=== PATIENT | female | born 1990 | race Caucasian/White ===

== ENCOUNTER → 2018-02-25 | Outpatient (CLI) | payer OTHER ==
[2018-02-25 17:38] LABS: RUBELLA IgG QUALITATIVE IMMUNE (IMMUNE)
[2018-02-25 17:39] LABS: HBsAg Prenatal NEGATIVE (NEGATIVE)
[2018-02-25 18:07] LABS: HIV 1&2 SCREEN CENTAUR NEGATIVE (NEGATIVE)
[2018-02-25 18:07] LABS: HEPATITIS C VIRUS ABY INDEX < 0.0 INDEX (<0.8)
[2018-02-25 18:22] LABS: BASO % 0.1 % (0.0-1.0); EOS # 0.2 10^3/uL (0.0-0.50); EOS % 1.4 % (0.0-3.0); HEMATOCRIT 40.4 % (36.0-47.0); HEMOGLOBIN 13.5 g/dl (12.0-15.5); IMMATURE GRANULOCYTE % 0.4 % (0-3.0); LYMPH # 2.5 10^3/uL (1.5-6.5); LYMPH % 18.2 % (24.0-44.0); MEAN CORPUSCULAR HEMOGLOBIN 28.8 pg (27.0-33.0); MEAN CORPUSCULAR HGB CONC 33.4 g/dl (32.0-36.5); MEAN CORPUSCULAR VOLUME 86.1 fl (80.0-96.0); MONO # 0.7 10^3/uL (0.0-0.8); MONO % 5.3 % (0.0-5.0); NEUTROPHILS # 10.3 10^3/uL (1.8-7.7); NEUTROPHILS % 74.6 % (36.0-66.0); PLATELET COUNT, AUTOMATED 304 10^3/uL (150-450); RED BLOOD COUNT 4.69 10^6/uL (4.00-5.40); RED CELL DISTRIBUTION WIDTH 12.2 % (11.5-14.5); WHITE BLOOD COUNT 13.9 10^3/uL (4.0-10.0)
[2018-02-25 20:43] LABS: CHLAMYDIA DNA AMPLIFICATION NEGATIVE (NEGATIVE); GC DNA AMPLIFICATION NEGATIVE (NEGATIVE)
== END ==
LOC: M SMT 14:14
DX: Z36.89 Encounter for other specified antenatal screening (principal)
CPT/HCPCS: 86762

== ENCOUNTER → 2018-04-22 | Outpatient (CLI) | payer OTHER | LOC: M RAD 14:14 | DX: Z34.82 Encounter for supervision of other normal pregnancy, second trimester (principal); Z36.89 Encounter for other specified antenatal screening; Z3A.19 19 weeks gestation of pregnancy | CPT/HCPCS: 76811 ==

== ENCOUNTER → 2018-05-23 | Outpatient (CLI) | payer OTHER | LOC: M RAD 16:34 | DX: Z34.82 Encounter for supervision of other normal pregnancy, second trimester (principal); Z3A.21 21 weeks gestation of pregnancy | CPT/HCPCS: 76816 ==

== ENCOUNTER → 2018-07-04 | Outpatient (CLI) | payer OTHER ==
[2018-07-05 08:53] LABS: AB SCREEN (INDIRECT COOMBS)VIS 1 1
== END ==
LOC: M SMT 15:03
DX: Z36.89 Encounter for other specified antenatal screening (principal); Z3A.00 Weeks of gestation of pregnancy not specified
CPT/HCPCS: 36415

== ENCOUNTER → 2018-08-23 | Outpatient (REF) | payer OTHER | LOC: M LAB REF 17:11 | DX: Z36.89 Encounter for other specified antenatal screening (principal) | CPT/HCPCS: 87081 ==

== ENCOUNTER 2018-09-27 15:26 | Inpatient (IN) | payer OTHER ==
[2018-09-27] VITALS (9 sets, daily range): BP systolic 117–144; BP diastolic 59–89
[~2018-09-27] VITALS: Ht 172.7 cm; Wt 110.9 kg
[2018-09-27] MEDS ORDERED: PRENTAB9 PO (15:57)
[2018-09-27] MEDS ORDERED: SUDAFED PO (15:57)
[2018-09-27] MEDS ORDERED: LACTATED RINGER'S 1000 ML IV STA (16:20)
[2018-09-27] MEDS ORDERED: SODIUM CHLORIDE NASAL 0.65% SPRAY BTL (OCEAN) PRN (16:30)
--- NOTE | 2018-09-27 16:42 | HPEPDOC ---
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 Past Medical History Surgical History: Denies/None Family History Significant Family History: Asthma, Heart disease, Hypertension Social History Marital Status: Family situation: Spouse/partner home Psychosocial History: No pertinent psych hx * Smoker: non-smoker Alcohol: Denies Drugs: denies Imunizations Tdap status: declined Allergies Coded Allergies: No Known Allergies (Unverified , 09/27/18) Medications Scheduled Multivitamins/ ( 27-0.8 mg) 1 Tab Tab, 1 TAB PO DAILY Scheduled PRN [Sudafed] , PO PRN PRN for CONGESTION Physical Examination Physical Examination GENERAL: Alert and oriented times three. BREAST: . ABDOMEN: Gravid and non-tender to touch. FETUS: Is vertex (VTX) by sterile vaginal examination (SVE), fetus is vertex (VTX) by Talon. HEART RATE: Regular rate and rhythm. LUNGS: Clear to auscultation (CTA). EXTREMITIES: No edema. No clonus. Deep tendon reflexes (DTRs) + 2. Vital Signs/I&O Vital Signs Date Time Temp Pulse Resp B/P (MAP) Pulse Ox O2 Delivery O2 Flow Rate FiO2 09/27/18 15:48 99.3 114 16 144/86 (105) Laboratory Data [facility] Laboratory Tests 2 09/27/18 15:55: Serology Scanned Report Hepatitis B Testing Pertinent Laboratoy Data Blood Type: A- RBC Antibody Screen: Negative HIV: Negative Hepatitis B: Negative Hepatitis C: Negative Rapid Plasma Reagin: Nonreactive Rubella: Immune Chlamydia/Gonorrhea: Negative Group B Streptococcus: Negative Quad Screen Test: Unknown ([place] low probablility) Glucose Tolerance Test: 104 Anatomy Ultrasound Ultrasound Date: Apr 22, 2018 Placenta Location: Anterior Normal Anatomy: Yes Placenta Previa: No Estimated Weight (grams): 265 Other Ultrasounds 02/25/18 - dating 10+3 Steroid Therapy Steroid Therapy: No Vaginal Examination Dilation: 1cm Effacement: 50% Station: -3 Assessment Heart Rate (FHR): 170 Variability: Moderate Accelerations: Positive Decelerations: None Heart Patterns: Tachycardia (pt reports taking sudafed this am) Tocometer Contractions: Yes Frequency: irregular Strength: palpated as mild Assessment/Plan Assessment Emili is a 28-year-old (G)1 para (P)0-0-0-0 at 41 weeks by 10-week ultrasound. Presents to Labor and Delivery (L&D) for postdate induction of labor per consult Dr Soria. Denies LOF or bleeding. Fetus very active with mild tach ycardia. She reports taking sudafed this am for cold symptoms on recommendation of pharmacist. Plan Admit and orient per consult Dr Soria Gericare Aide and consent. Diet: Regular. Group B Streptococcus (GBS) negative. Labs and intravenous (IV) per unit protocol. Counseled on misoprostol, Pitocin and induction of labor (IOL). Will hold starting IOL till FH is WNL. Lactated Ringers (LR): Bolus 500 mL, then at 125 mL/hr. Pt plans to labor ad salvador Anticipate normal spontaneous delivery () C-S as appropriate. Fátima Marcelino CNM Sep 27, 2018 16:42
[2018-09-27 17:08] LABS: HEMATOCRIT 36.9 % (36.0-47.0); HEMOGLOBIN 12.3 g/dl (12.0-15.5); MEAN CORPUSCULAR HEMOGLOBIN 28.6 pg (27.0-33.0); MEAN CORPUSCULAR HGB CONC 33.3 g/dl (32.0-36.5); MEAN CORPUSCULAR VOLUME 85.8 fl (80.0-96.0); PLATELET COUNT, AUTOMATED 205 10^3/uL (150-450); WHITE BLOOD COUNT 13.7 10^3/uL (4.0-10.0)
[2018-09-27] MEDS: LR 1,000 ML IV SCH ×2 (17:18→21:22)
[2018-09-27 17:29] LABS: CREATININE,RANDOM URINE 46.4 MG/DL; TOTAL PROTEIN,RANDOM URINE 11.4 MG/DL (0.0-12.0)
[2018-09-27 17:34] LABS: ALT/SGPT 23 U/L (12-78); BILIRUBIN,TOTAL 0.2 MG/DL (0.2-1.0); CREATININE FOR GFR 0.58 MG/DL (0.55-1.30); GLOMERULAR FILTRATION RATE > 60.0 (>60); LDH LACTATE DEHYDROGENASE 175 U/L (84-246); URIC ACID 3.5 MG/DL (2.6-6.0)
[2018-09-27] MEDS: miSOPROStol 50 MCG 1/2 TAB (S0191) PO SCH ×2 (18:00→22:07)
[2018-09-27] MEDS ORDERED: hydrOXYzine 50 MG TAB PO SCH (21:00)
[2018-09-28] VITALS (33 sets, daily range): BP systolic 105–141; BP diastolic 55–89
[2018-09-28] MEDS: miSOPROStol 50 MCG 1/2 TAB (S0191) PO SCH (02:09)
[2018-09-28] MEDS ORDERED: PROMETHAZINE INJ 25 MG/ML VIAL (J2550) IV ONE (05:00)
[2018-09-28] MEDS ORDERED: BUTORPHANOL 2 MG/ML INJ (J0595) IV ONE (05:00)
[2018-09-28] MEDS ORDERED: PROMETHAZINE INJ 25 MG/ML VIAL (J2550) As Ordered ONE (05:10)
[2018-09-28] MEDS ORDERED: BUTORPHANOL 2 MG/ML INJ (J0595) As Ordered ONE (05:11)
[2018-09-28] MEDS: LR 1,000 ML IV SCH (05:27)
[2018-09-28] MEDS ORDERED: OXYTOCIN DRIP 30 UNITS in APPROPRIATE DILUENT 1 EA IV SCH ×2 (09:15→18:45)
[2018-09-28] MEDS ORDERED: FENTANYL 2MCG/ML ROPIVACAINE 0.2% IN 0.9% NACL 100ML IVBAG As Ordered ONE (12:02)
[2018-09-28] MEDS ORDERED: ePHEDrine SULFATE 25 MG/5 ML(5MG/ML) SYRINGE IV PRN (12:45)
[2018-09-28] MEDS ORDERED: FENTANYL/ROPIVACAINE/NACL BAG 100 ML EPIDURAL SCH (12:45)
[2018-09-28] MEDS ORDERED: EPIDURAL COMMENT XX SCH (12:45)
[2018-09-28] MEDS ORDERED: diphenhydrAMINE INJ 50MG/ML VIAL (J1200) IV PRN ×2 (12:45→17:51)
[2018-09-28] MEDS ORDERED: EPIDURAL/PCA KEYS XX PRN (12:45)
[2018-09-28] MEDS ORDERED: ONDANSETRON 4MG/2ML VIAL (J2405) IV PRN ×4 (12:45→18:45)
[2018-09-28] MEDS ORDERED: LACTATED RINGER'S 1000 ML IV PRN (12:45)
[2018-09-28] MEDS ORDERED: NALOXONE INJ 0.4 MG/1 ML VIAL (J2310) IV PRN ×3 (12:45→17:51)
[2018-09-28] MEDS ORDERED: REFRIGERATOR IV KEYS XX PRN (12:45)
--- NOTE | 2018-09-28 15:07 | NUR ---
L&D Note: S: comfortable after epidural O: vss, AF cat 1 tracing pitocin at 4mU cx: 3/50-2, AROM clear. A/P: IOL at 41 wks. Reassuring status -continue Pitocin IOL., recheck in 4-5 hrs. Shaila Soria MD
[2018-09-28] MEDS ORDERED: BICITRA 30ML SOLN UDC As Ordered ONE ×2 (17:13→17:24)
[2018-09-28] MEDS ORDERED: ceFAZolin 1GM INJ (J0690 PER 500MG) As Ordered ONE (17:13)
[2018-09-28] MEDS ORDERED: ceFAZolin 2 GM/D5W 50 ML IV BAG (J0690 PER 500MG) As Ordered ONE (17:13)
--- NOTE | 2018-09-28 17:20 | NUR ---
L&D Note: -pitocin off for prolong abraham. Has reduced earlier for late decelerations. Has continued to have intermitting lates while pitocin off. cx exam /-2. Discussed 1LTCS for inability to augment labor. Couple agrees with plan and will proceed.
[2018-09-28] MEDS ORDERED: LIDOCAINE PRES-FREE 2% 10ML AMP As Ordered ONE (17:23)
[2018-09-28] MEDS ORDERED: OXYTOCIN INJ 10 UNITS/ML VIAL (J2590) As Ordered ONE (17:24)
[2018-09-28] MEDS ORDERED: MORPHINE PRES-FREE INJ 10 MG/10 ML VIAL (J2274) As Ordered ONE (17:44)
[2018-09-28] MEDS ORDERED: ONDANSETRON 4MG/2ML VIAL (J2405) As Ordered ONE (17:51)
[2018-09-28] MEDS ORDERED: NALBUPHINE HCL 10 MG/ML AMP (J2300) IV PRN (17:51)
[2018-09-28] MEDS ORDERED: METOCLOPRAMIDE INJ 10MG/2ML VIAL (J2765) IV PRN ×2 (17:51→18:45)
[2018-09-28 18:02] LABS: CORD GAS ABE V -3.1; CORD GAS HCO3 V 22.9 MEQ/L; CORD GAS O2 SAT V 75.2 %; CORD GAS PCO2 V 44.5 mmHg; CORD GAS PH V 7.33 UNITS; CORD GAS PO2 V 34.9 mmHg; CORD GAS SBC V 21.3 MEQ/L; CORD GAS TCO2 V 24.3 MEQ/L
[2018-09-28 18:09] LABS: CORD GAS ABE A -4.7; CORD GAS HCO3 A 23.2 MEQ/L; CORD GAS O2 SAT A 68.4 %; CORD GAS PCO2 A 53.4 mmHg; CORD GAS PH A 7.256 UNITS; CORD GAS PO2 A 31.1 mmHg; CORD GAS SBC A 19.9 MEQ/L; CORD GAS TCO2 A 24.8 MEQ/L
[2018-09-28] MEDS ORDERED: KETOROLAC 60 MG/2 ML VIAL (J1885) As Ordered ONE (18:22)
[2018-09-28] MEDS ORDERED: IBUP1TAB7 PO (18:42)
[2018-09-28] MEDS ORDERED: PERCOCET PO (18:43)
[2018-09-28] MEDS ORDERED: fentaNYL 100 MCG/2 ML INJECTION (J3010) IV PRN (18:45)
[2018-09-28] MEDS ORDERED: PERCOCET 5MG/325MG TAB PO PRN ×2 (18:45)
[2018-09-28] MEDS ORDERED: RHOGAM 300 MCG (1500 IU) INJ (J2790) IM SCH (18:45)
[2018-09-28] MEDS ORDERED: LR 1,000 ML IV SCH (18:45)
[2018-09-28] MEDS ORDERED: MEASLES,MUMPS,RUBELLA VACCINE INJ (MMR-II) (90707) SC SCH (18:45)
[2018-09-28] MEDS ORDERED: MOM 30ML SUSPENSION UDC PO PRN (18:45)
[2018-09-28] MEDS ORDERED: AZITHROMYCIN 250 MG TAB PO ONE (19:00)
[2018-09-28] MEDS ORDERED: OXYTOCIN 30 UNITS IN 0.9% NaCl 500ML IV BAG (J2590) As Ordered ONE (19:04)
[2018-09-28] MEDS ORDERED: fentaNYL 100 MCG/2 ML INJECTION (J3010) As Ordered ONE (19:16)
[2018-09-29] VITALS (7 sets, daily range): BP systolic 106–126; BP diastolic 59–76
[2018-09-29] MEDS: KETOROLAC 30 MG/ML VIAL (J1885) IV SCH ×3 (00:34→14:01)
[2018-09-29] MEDS: LR 1,000 ML IV SCH ×2 (00:34→04:00)
[2018-09-29 06:23] LABS: HEMATOCRIT 28.2 % (36.0-47.0); MEAN CORPUSCULAR HEMOGLOBIN 28.8 pg (27.0-33.0); MEAN CORPUSCULAR HGB CONC 33.3 g/dl (32.0-36.5); MEAN CORPUSCULAR VOLUME 86.5 fl (80.0-96.0); PLATELET COUNT, AUTOMATED 143 10^3/uL (150-450); RED BLOOD COUNT 3.26 10^6/uL (4.00-5.40); WHITE BLOOD COUNT 14.2 10^3/uL (4.0-10.0)
[2018-09-29 06:49] LABS: HEMOGLOBIN 9.4 g/dl (12.0-15.5)
--- NOTE | 2018-09-29 07:28 | RO ---
DATE OF PROCEDURE: 09/28/2018 PREOPERATIVE DIAGNOSIS: Inability to augment labor. POSTOPERATIVE DIAGNOSIS: Inability to augment labor. PROCEDURE PERFORMED: Primary lower transverse section. SURGEON: Shaila Soria MD ASSISTANTS: None. ANESTHESIA: Epidural. ESTIMATED BLOOD LOSS: 500 mL. INTRAVENOUS FLUIDS: 900 mL of lactated Ringer solution. URINE OUTPUT: 100 mL. OPERATIVE FINDINGS: Liveborn male , 8 and 9. Weight was 4360 grams or 9 pounds 10 ounces. PREOPERATIVE ANTIBIOTICS: 3 grams of Ancef. SPECIMENS: Cord blood and cord gases. Cord gas was 7.25, 7.33 with base excesses of minus 4.7 and minus 3.1, respectively. DESCRIPTION OF OPERATION: After informed consent was obtained and written consent was reviewed, the patient was brought to the operating room where she was placed in supine position with a left lateral tilt. She had a Medina catheter, which was previously placed and set to gravity. She was prepped and draped in normal sterile fashion. A time-out in the operating room was then performed, identifying the patient, procedure to be performed, as well as drug allergies. Anesthesia was tested and deemed to be adequate. A Pfannenstiel skin incision was then made and carried down to the underlying rectus fascia. The fascia was scored and this incision was extended bilaterally. The fascia was then dissected off the underlying rectus muscles both superiorly and inferiorly. The rectus muscles were then in the midline. The peritoneum was then entered. The vesicouterine peritoneum was then was tented and excised to create a bladder flap. The bladder blade was then placed to retract back the bladder. A curvilinear incision was then made in the lower uterine segment. This incision was extended bilaterally. head was brought to the level of the incision atraumatically and delivered along with shoulders and corpus. Cord was clamped times two and was taken over to the warmer with a good cry. Cord gases and blood was obtained. Placenta was then delivered grossly intact. The uterus was then exteriorized and cleared of all clots and debris. The uterine incision was then closed using #0 Vicryl in a running locking fashion and second layer closure with #0 Vicryl for imbrication in a running nonlocking fashion. The abdomen was then suctioned. The uterus was returned to the patient's abdomen. The surgical sites were re-inspected and noted to be hemostatic. The anterior peritoneum was then reapproximated with #3-0 Vicryl. The rectus muscles were reapproximated with #3-0 Vicryl. The fascia was then closed with #0 Vicryl in a running nonlocking fashion. The subcutaneous tissue was then irrigated and suctioned. Subcutaneous tissue was then reapproximated with #3-0 Vicryl. Several subdermal stitches were placed with #3-0 Vicryl and the skin was closed with #4-0 Monocryl in a subcuticular fashion. The incision was then cleaned and dry and was dressed. The patient was then taken to recovery in stable condition. Counts were correct. MTDD
--- NOTE | 2018-09-29 07:58 | NUR ---
POD#1 S: Doing well w/o complaints. Decreasing lochia, pain controlled, + voids and ambulation. O: vss, AF Gen: well appearing abd: soft, nttp with ff@u-1 incision: Dressed A/P: POD#1 s/p 1LTCS-currently stable -continue routine /postoperative care -d/c plans for tomorrow Shaila Soria MD
[2018-09-29] MEDS: PRENATAL VITAMINS CHEWABLE TABLET PO SCH (09:52)
[2018-09-29] MEDS: AZITHROMYCIN 250 MG TAB PO SCH (09:52)
[2018-09-29] MEDS: guaiFENesin SYRUP 200 MG/10 ML UDC PO PRN (11:51)
[2018-09-29] MEDS: DOCUSATE SODIUM 100 MG CAP PO SCH ×2 (14:43→20:43)
[2018-09-29] MEDS: PERCOCET 5MG/325MG TAB PO PRN (17:56)
[2018-09-29] MEDS: IBUPROFEN 800 MG TAB PO SCH (20:44)
[2018-09-30] MEDS: guaiFENesin SYRUP 200 MG/10 ML UDC PO PRN (00:41)
[2018-09-30] MEDS: PERCOCET 5MG/325MG TAB PO PRN ×2 (00:45→11:12)
[2018-09-30] MEDS: IBUPROFEN 800 MG TAB PO SCH ×2 (04:30→12:58)
[2018-09-30 05:47] VITALS: BP 119/70
--- NOTE | 2018-09-30 09:02 | DSES ---
DATE OF ADMISSION: 09/27/2018 DATE OF DISCHARGE: 09/30/2018 DISCHARGE DIAGNOSIS: Primary section for inability to augment labor. PROCEDURE PERFORMED WHILE IN HOSPITAL: 1. Epidural. 2. section. DISCHARGE CONDITION: Stable. HISTORY AND HOSPITAL COURSE: Ms. Crockett presented on 09/27/2018 for induction at 41 weeks. Her Pitocin was discontinued several times secondary to Category 3 heart rate tracing. She had a bradycardic event for several minutes at which time her induction was discontinued and I proceeded with a section for inability to augment her labor. The section was unremarkable. It was productive of a live born male , Apgars 8 and 9, and weight was 4360 grams or 9 pounds 10 ounces. Estimated blood loss for delivery was 500 mL. She did well postoperatively. By postoperative day #2, had met all discharge criteria and was discharged home in stable condition. PHYSICAL EXAMINATION ON DAY OF DISCHARGE: Her vital signs are stable. She is afebrile. General Appearance: Well appearing in no acute distress. Abdomen was soft, appropriately tender. Fundus was firm below umbilicus. Incision was dressed. Lower Extremities: Negative for calf tenderness. DISCHARGE MEDICATIONS: - ibuprofen - Percocet - Prozac DISCHARGE INSTRUCTIONS: 1. Instructed to follow up in 2 weeks for incision check. 2. To report severe pain, heavy vaginal bleeding, fever, or incisional issues. edited: 10/02/2018 0737 tkf MTDD
[2018-09-30] MEDS: DOCUSATE SODIUM 100 MG CAP PO SCH (09:14)
[2018-09-30] MEDS: AZITHROMYCIN 250 MG TAB PO SCH (09:14)
[2018-09-30] MEDS: PRENATAL VITAMINS CHEWABLE TABLET PO SCH (09:14)
[2018-09-30] MEDS ORDERED: MOM30SS PO (10:08)
[2018-09-30] MEDS ORDERED: ROBILIQ22 PO (10:08)
[2018-09-30] MEDS ORDERED: COLA100C5 PO (10:08)
[2018-09-30] MEDS ORDERED: PROZ20CA11 PO (10:24)
[2018-09-30] MEDS ORDERED: AZIT-12 PO (10:24)
== END 2018-09-30 16:20 | disposition home or self-care (01) | DRG 788 ==
LOC: M LDI 15:26 → M OBS 09-28 20:41
PROVIDERS: ADMIT Advanced Practice Midwife; ATTEND Advanced Practice Midwife
PROC: 10D00Z1 Extraction of Products of Conception, Low, Open Approach (ICD-10-PCS; principal; 2018-09-28 17:31)
DX: O48.0 Post-term pregnancy (principal); Z37.0 Single live birth; Z3A.41 41 weeks gestation of pregnancy; O76 Abnormality in fetal heart rate and rhythm complicating labor and delivery; O61.0 Failed medical induction of labor

== ENCOUNTER → 2019-02-11 | Outpatient (REF) | payer OTHER ==
[~2019-02-11] MED LIST: AZIT-12 PO; COLA100C5 PO; IBUP1TAB7 PO; MOM30SS PO; PERCOCET PO; PRENTAB9 PO; PROZ20CA11 PO; ROBILIQ22 PO; SUDAFED PO
== END ==
LOC: M LAB REF 17:00
PROVIDERS: ATTEND Obstetrics & Gynecology
DX: Z12.4 Encounter for screening for malignant neoplasm of cervix (principal)

== ENCOUNTER → 2021-03-08 | Outpatient (REF) | payer OTHER | LOC: M SFHCWAGY 10:08 | PROVIDERS: ATTEND Obstetrics & Gynecology | DX: Z12.4 Encounter for screening for malignant neoplasm of cervix (principal); Z01.419 Encounter for gynecological examination (general) (routine) without abnormal findings ==

== ENCOUNTER → 2021-07-15 | Outpatient (CLI) | payer OTHER | LOC: M PLALAB 15:20 | PROVIDERS: ATTEND Obstetrics & Gynecology | DX: N97.0 Female infertility associated with anovulation (principal) ==

== ENCOUNTER → 2021-08-31 | Outpatient (REF) | payer OTHER | LOC: M SFHCWAGY 18:41 | PROVIDERS: ATTEND Obstetrics & Gynecology | DX: N87.1 Moderate cervical dysplasia (principal) ==

== ENCOUNTER → 2022-09-19 | Outpatient (CLI) | payer OTHER ==
[~2022-09-19] MED LIST changes: +ALBU8.5H INH; +COQ1200C3 PO; +ECOT81TA5 PO; +VITA100093 PO; +VITATAB73 PO; +ZYRTTAB8 PO
== END ==
LOC: M LABSMTC 09:18
PROVIDERS: ATTEND Anesthesiology
DX: Z01.812 Encounter for preprocedural laboratory examination (principal); Z11.52 Encounter for screening for COVID-19

== ENCOUNTER 2022-09-21 06:10 | Day surgery (SDC) | payer OTHER ==
[~2022-09-21] VITALS: Ht 172.7 cm; Wt 96.2 kg
[2022-09-21 06:43] LABS: HEMATOCRIT 42.4 % (36.0-47.0); HEMOGLOBIN 13.6 g/dl (12.0-15.5); MEAN CORPUSCULAR HEMOGLOBIN 27.7 pg (27.0-33.0); MEAN CORPUSCULAR HGB CONC 32.1 g/dl (32.0-36.5); MEAN CORPUSCULAR VOLUME 86.4 fl (80.0-96.0); PLATELET COUNT, AUTOMATED 248 10^3/uL (150-450); RED BLOOD COUNT 4.91 10^6/uL (4.00-5.40); WHITE BLOOD COUNT 7.2 10^3/uL (4.0-10.0)
[2022-09-21] MEDS ORDERED: LR 1,000 ML IV SCH ×2 (06:55→08:35)
[2022-09-21] MEDS ORDERED: KETOROLAC 60MG 2ML VIAL As Ordered ONE (07:44)
[2022-09-21] MEDS ORDERED: LIDOCAINE 2% 100MG/5ML SDV (FOR ANES.) As Ordered ONE (07:44)
[2022-09-21] MEDS ORDERED: ONDANSETRON 4MG 2ML VIAL As Ordered ONE (07:44)
[2022-09-21] MEDS ORDERED: propofoL 200 MG/20 ML VIAL As Ordered ONE (07:44)
[2022-09-21] MEDS ORDERED: ACETAMINOPHEN 1000MG 100ML IV BAG As Ordered ONE (07:44)
[2022-09-21] MEDS ORDERED: MIDAZOLAM INJ 2MG/2ML VIAL As Ordered ONE (07:44)
[2022-09-21] MEDS ORDERED: METOCLOPRAMIDE INJ 10MG/2ML VIAL As Ordered ONE (07:44)
[2022-09-21] MEDS ORDERED: fentaNYL 100 MCG/2 ML INJECTION As Ordered ONE (07:44)
[2022-09-21] MEDS ORDERED: oxyCODONE 5MG TAB PO PRN (08:35)
[2022-09-21] MEDS ORDERED: fentaNYL 100 MCG/2 ML INJECTION IV PRN (08:35)
[2022-09-21] MEDS ORDERED: ONDANSETRON 4MG 2ML VIAL IV PRN (08:35)
[2022-09-21] MEDS ORDERED: HYDROMORPHONE HCL 0.5 MG/ 0.5 ML SYRINGE IV PRN (08:35)
[2022-09-21 09:14] VITALS: BP 117/59
== END 2022-09-21 09:35 | disposition home or self-care (01) ==
LOC: M SDC 06:10
PROVIDERS: ATTEND Obstetrics & Gynecology
DX: N93.9 Abnormal uterine and vaginal bleeding, unspecified (principal); N97.9 Female infertility, unspecified; N84.0 Polyp of corpus uteri; R51.9 Headache, unspecified; F41.9 Anxiety disorder, unspecified; F32.A Depression, unspecified; Z79.51 Long term (current) use of inhaled steroids; Z79.899 Other long term (current) drug therapy
CPT/HCPCS: 36415; 58558; 81025; 85027; 86850; 86900; 86901; 88305; J1100; J2405

== ENCOUNTER → 2022-12-11 | Outpatient (CLI) | payer OTHER | LOC: M RAD 10:34 | PROVIDERS: ATTEND Family Medicine | DX: Z36.87 Encounter for antenatal screening for uncertain dates (principal); Z3A.01 Less than 8 weeks gestation of pregnancy ==

== ENCOUNTER → 2023-01-08 | Outpatient (CLI) | payer OTHER | LOC: M WHC 15:13 | PROVIDERS: ATTEND Internal Medicine Hepatology | DX: Z36.87 Encounter for antenatal screening for uncertain dates (principal); Z3A.10 10 weeks gestation of pregnancy ==

== ENCOUNTER → 2023-03-08 | Outpatient (CLI) | payer OTHER | LOC: M WHC 15:15 | PROVIDERS: ATTEND Family Medicine | DX: Z36.89 Encounter for other specified antenatal screening (principal); Z3A.19 19 weeks gestation of pregnancy; O32.1XX0 Maternal care for breech presentation, not applicable or unspecified ==

== ENCOUNTER → 2023-04-02 | Outpatient (CLI) | payer OTHER | LOC: M WHC 14:12 | PROVIDERS: ATTEND Family Medicine | DX: Z36.9 Encounter for antenatal screening, unspecified (principal); Z3A.23 23 weeks gestation of pregnancy ==

== ENCOUNTER → 2023-04-30 | Outpatient (CLI) | payer OTHER | LOC: M WHC 12:02 | PROVIDERS: ATTEND Family Medicine | DX: O28.3 Abnormal ultrasonic finding on antenatal screening of mother (principal) ==

== ENCOUNTER → 2023-07-03 | Outpatient (REF) | payer OTHER | LOC: M PLALAB 15:44 | PROVIDERS: ATTEND Obstetrics & Gynecology | DX: Z36.85 Encounter for antenatal screening for Streptococcus B (principal) ==

== ENCOUNTER 2023-08-02 01:22 | Inpatient (IN) | payer OTHER ==
[~2023-08-02] VITALS: Ht 172.7 cm; Wt 113.9 kg
[2023-08-02] VITALS (56 sets, daily range): BP systolic 99–147; BP diastolic 54–86
[2023-08-02] MEDS ORDERED: PROZ10CA7 PO (01:42)
[2023-08-02 03:27] LABS: HEMATOCRIT 35.8 % (36.0-47.0); HEMOGLOBIN 12.2 g/dl (12.0-15.5); MEAN CORPUSCULAR HEMOGLOBIN 29.3 pg (27.0-33.0); MEAN CORPUSCULAR HGB CONC 34.1 g/dl (32.0-36.5); MEAN CORPUSCULAR VOLUME 85.9 fl (80.0-96.0); PLATELET COUNT, AUTOMATED 209 10^3/uL (150-450); RED BLOOD COUNT 4.17 10^6/uL (4.00-5.40); WHITE BLOOD COUNT 16.8 10^3/uL (4.0-10.0)
[2023-08-02] MEDS ORDERED: ePHEDrine SULFATE 25 MG/5 ML(5MG/ML) SYRINGE IVP PRN (04:25)
[2023-08-02] MEDS ORDERED: LR 500 ML IV PRN (04:25)
[2023-08-02] MEDS ORDERED: EPIDURAL/PCA KEYS XX PRN (04:25)
[2023-08-02] MEDS ORDERED: diphenhydrAMINE 50MG/ML VIAL IV PRN (04:25)
[2023-08-02] MEDS ORDERED: ONDANSETRON 4MG 2ML VIAL IV PRN (04:25)
[2023-08-02] MEDS ORDERED: NALOXONE INJ 0.4MG/1ML VIAL IV PRN (04:25)
[2023-08-02] MEDS ORDERED: LACTATED RINGER'S 1000 ML IV STA (04:28)
[2023-08-02] MEDS ORDERED: TRANEXAMIC ACID INJection 1,000 MG in NS 100 ML IV PRN (04:30)
[2023-08-02] MEDS ORDERED: LR 1,000 ML IV SCH (04:30)
[2023-08-02] MEDS ORDERED: LIDOCAINE 1% MDV 20ML VIAL INFIL PRN (04:30)
[2023-08-02] MEDS: FENTANYL/ROPIVACAINE/NACL BAG 100 ML EPIDURAL SCH ×3 (04:30→18:20)
[2023-08-02] MEDS ORDERED: METHYLERGONOVINE MALEATE 0.2MG/ML 1ML VIAL IM PRN (04:30)
[2023-08-02] MEDS ORDERED: OXYTOCIN DRIP 30 UNITS in IV 1 EA IV PRN (04:30)
[2023-08-02] MEDS ORDERED: CARBOPROST TROMETHAMINE 250 MCG/ML AMP IM PRN (04:30)
[2023-08-02] MEDS ORDERED: OXYTOCIN DRIP 30 UNITS in IV 1 EA IV SCH (08:00)
[2023-08-02] MEDS: FLUoxetine 10 MG CAP PO SCH (08:18)
[2023-08-02] MEDS: LR 1,000 ML IV SCH ×2 (12:08→19:45)
[2023-08-03 00:11] VITALS: BP 124/71
[2023-08-03] MEDS ORDERED: ACETAMINOPHEN TAB 650MG DOSE (2X325MG) PO PRN (00:15)
[2023-08-03] MEDS ORDERED: OXYTOCIN DRIP 30 UNITS in IV 1 EA IV SCH (00:15)
[2023-08-03] MEDS ORDERED: DIBUCAINE 1% OINTMENT 30GM TOP PRN (00:15)
[2023-08-03] MEDS ORDERED: ANUSOL HC CREAM 30GM TOP PRN (00:15)
[2023-08-03] MEDS: LR 1,000 ML IV SCH ×3 (00:15→16:15)
[2023-08-03] MEDS ORDERED: IBUPROFEN 600MG TAB PO PRN (00:15)
[2023-08-03] MEDS ORDERED: RHOGAM 300MCG (1500IU) INJ IM SCH (00:15)
[2023-08-03 00:31] VITALS: BP 121/59
[2023-08-03] MEDS: IBUPROFEN 800 MG TAB PO PRN ×3 (00:33→16:16)
[2023-08-03 00:41] VITALS: BP 122/68
[2023-08-03 00:56] VITALS: BP 124/65
[2023-08-03 01:30] VITALS: BP 118/60
[2023-08-03] MEDS: ACETAMINOPHEN 500 MG TAB PO PRN ×3 (04:40→18:18)
[2023-08-03] MEDS: PRENATAL VITAMINS CHEWABLE TABLET PO SCH (08:39)
[2023-08-03] MEDS: FLUoxetine 10 MG CAP PO SCH (08:39)
[2023-08-03] MEDS: DOCUSATE SODIUM 100MG CAPSULE PO PRN (16:19)
[2023-08-03 18:00] VITALS: BP 123/80; O2SAT 99
[2023-08-04] MEDS: IBUPROFEN 800 MG TAB PO PRN ×2 (00:02→09:29)
[2023-08-04] MEDS: ACETAMINOPHEN 500 MG TAB PO PRN ×2 (04:51→13:35)
[2023-08-04 06:25] VITALS: BP 107/59; O2SAT 98
[2023-08-04] MEDS: DOCUSATE SODIUM 100MG CAPSULE PO PRN (09:16)
[2023-08-04] MEDS: PRENATAL VITAMINS CHEWABLE TABLET PO SCH (09:16)
[2023-08-04] MEDS: FLUoxetine 10 MG CAP PO SCH (09:17)
[2023-08-04] MEDS ORDERED: IBUP80TA PO (14:00)
[2023-08-04] MEDS ORDERED: ACET-683 PO (14:00)
[2023-08-05] MEDS ORDERED: MEASLES,MUMPS,RUBELLA VACCINE INJ (MMR-II) SC.IMMUN ONE (09:00)
== END 2023-08-04 16:09 | disposition home or self-care (01) | DRG 807 ==
LOC: M LDO 01:22 → M LDI 03:35 → M OBS 08-03 01:30
PROVIDERS: ADMIT Advanced Practice Midwife; ATTEND Advanced Practice Midwife
PROC: 10907ZC Drainage of Amniotic Fluid, Therapeutic from Products of Conception, Via Natural or Artificial Opening (ICD-10-PCS; 2023-08-02)
PROC: 10E0XZZ Delivery of Products of Conception, External Approach (ICD-10-PCS; principal; 2023-08-03)
PROC: 0KQM0ZZ Repair Perineum Muscle, Open Approach (ICD-10-PCS; 2023-08-03)
DX: O48.0 Post-term pregnancy (principal); Z37.0 Single live birth; Z3A.40 40 weeks gestation of pregnancy; O70.1 Second degree perineal laceration during delivery; O34.211 Maternal care for low transverse scar from previous cesarean delivery

== ENCOUNTER → 2025-07-13 | Outpatient (REF) | payer OTHER ==
[~2025-07-13] MED LIST changes: +ACET-683 PO; +IBUP80TA PO; +PROZ10CA11 PO; -PROZ20CA11 PO; +PROZ20CA12 PO
== END ==
LOC: M SFHCDERM 17:39
PROVIDERS: ATTEND Physician Assistant
DX: D23.9 Other benign neoplasm of skin, unspecified (principal)